=== PATIENT | female | born 1960 | race Caucasian/White ===

== ENCOUNTER 2018-12-12 15:31 | Emergency (ER) | payer SELFPAY ==
[2018-12-12] MEDS ORDERED: Fluorescein 1 MG Ophth Strip EYELF ONE (16:50)
[2018-12-12] MEDS ORDERED: Ketorolac 0.5% Ophth Soln 5 ML Bottle EYELF ONE (17:36)
[2018-12-12] MEDS ORDERED: Ciprofloxacin 0.3% Ophth Soln 5 ML Bottle EYELF ONE (17:37)
--- NOTE | 2018-12-12 17:43 | EDM.PDOC ---
ED HPI GENERAL MEDICAL PROBLEM - General Chief Complaint: ENT Problem Stated Complaint: LT EYE PAIN Time Seen by Provider: 12/12/18 16:50 Source of Information: Reports: Patient, RN Notes Reviewed History Limitations: Reports: No Limitations - History of Present Illness INITIAL COMMENTS - FREE TEXT/NARRATIVE: Patient is a 58-year-old female who presents to the ED for the evaluation of left eye pain. The patient notes that she has a contact lens wearer. She states that she put her contact lenses in this morning, and developed some burning into her left eye. She notes that she went to orthodoxy with the contacts in, and after orthodoxy, she took her contacts out, she states is the burning was making it too painful. She states she's not been able to keep her eyes open much, and she states she is light sensitive. But she feels as if there is a "film over her eye". She denies any blurred vision or double vision. Patient states that the pain is bad enough, she has a headache and some slight nausea with this. Patient notes that she does have glasses to wear as well. 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 Musculoskeletal History: Reports: None Neurological History: Reports: None Psychiatric History: Reports: Anxiety, Depression Endocrine/Metabolic History: Reports: None Hematologic History: Reports: None Immunologic History: Reports: None Oncologic (Cancer) History: Reports: None Dermatologic History: Reports: None - Infectious Disease History Infectious Disease History: Reports: None - Past Surgical History Head Surgeries/Procedures: Reports: None HEENT Surgical History: Reports: Tonsillectomy Social & Family History - Tobacco Use Smoking Status *Q: Never Smoker - Caffeine Use Caffeine Use: Reports: Coffee, Energy Drinks, Soda, Tea - Recreational Drug Use Recreational Drug Use: No ED ROS ENT - Review of Systems Review Of Systems: See Below Constitutional: Denies: Fever, Chills HEENT: Reports: Contact Lenses, Eye Pain. Denies: Eye Discharge Respiratory: Reports: No Symptoms Cardiovascular: Reports: No Symptoms Endocrine: Reports: No Symptoms GI/Abdominal: Reports: Nausea Musculoskeletal: Reports: No Symptoms Skin: Reports: No Symptoms Neurological: Reports: Headache Psychiatric: Reports: No Symptoms Hematologic/Lymphatic: Reports: No Symptoms ED EXAM, ENT - Physical Exam Exam: See Below Exam Limited By: No Limitations General Appearance: Alert, WD/WN, No Apparent Distress Eye Exam: Left Eye: Corneal Abrasion (noted to inner upper aspect of Left eye), Bilateral Eye: Conjunctival Injection, EOMI, PERRL Ears: Normal External Exam Nose: Normal Inspection Mouth/Throat: Normal Inspection Head: Atraumatic, Normocephalic Neck: Normal Inspection Respiratory/Chest: No Respiratory Distress, Lungs Clear, Normal Breath Sounds, No Accessory Muscle Use, Chest Non-Tender Cardiovascular: Normal Peripheral Pulses, Regular Rate, Rhythm, No Murmur GI/Abdominal: Normal Bowel Sounds, Soft, Non-Tender, No Distention, No Mass Extremities: Normal Inspection, Normal Capillary Refill Neurological: Alert, Oriented, Normal Cognition, No Motor/Sensory Deficits Psychiatric: Normal Affect, Normal Mood Skin: Warm, Dry, Intact, Normal Color, No Rash Course - Vital Signs Last Recorded V/S: Last Vital Signs Temp 97.6 F 12/12/18 15:40 Pulse 75 12/12/18 15:40 Resp 16 12/12/18 15:40 BP 126/108 H 12/12/18 15:40 Pulse Ox 100 12/12/18 15:40 - Orders/Labs/Meds Orders: Active Orders 24 hr Category Date Time Status Ciprofloxacin [Ciloxan 0.3% Ophth Soln] Med 12/12/18 17:37 Once See Dose Instructions EYELF Q4H ONE Ketorolac [Acular 0.5% Ophth Soln] Med 12/12/18 17:36 Once See Dose Instructions EYELF QID ONE Meds: Medications Discontinued Medications Generic Name Dose Route Start Last Admin Trade Name Freq PRN Reason Stop Dose Admin Fluorescein Sodium 1 mg 12/12/18 16:50 12/12/18 16:54 Ful-Albina EYELF 12/12/18 16:51 1 mg ONETIME ONE Administration - Re-Assessments/Exams Free Text/Narrative Re-Assessment/Exam: 12/12/18 17:42 Patient presents to the ED for the evaluation for Left eye pain. It does look as if the patient has a corneal abrasion on the left inner upper eyeball. This was examined with Alysia and, and appears to be the only area that is affected. Due to the patient being a contact lens wearer, she'll be given ciprofloxacin drops, and ketorolac drops, for further management, and she will need to follow up with an credit risk analyst in 24-48 hours. Departure - Departure Time of Disposition: 17:43 Disposition: Home, Self-Care 01 Condition: Fair Clinical Impression: Corneal abrasion of left eye due to contact lens - Discharge Information *PRESCRIPTION DRUG MONITORING PROGRAM REVIEWED*: No *COPY OF PRESCRIPTION DRUG MONITORING REPORT IN PATIENT TISHA: No Referrals: PCP,Not In Area [Primary Care Provider] - Additional Instructions: You were evaluated in the ER today regarding your left eye pain. Your eye was evaluated in the ER, and there does appear to be an abrasion on your left eyes, he will need to use the ciprofloxacin drops, one to 2 drops in the left eye every 2-4 hours for the next couple days. You were given a prescription for ketorolac drops, a pain relieving eyedrop, please use 1-2 drops in the left eye 4 times daily as needed. As you are a contact lens wearer, it is recommended that you have an credit risk analyst follow-up within 24-48 hours for a more thorough examination. Please do so as soon as you're able. Please return to the ED at any time if your symptoms should change or worsen. - My Orders Last 24 Hours: My Active Orders 12/12/18 17:36 Ketorolac [Acular 0.5% Ophth Soln] See Dose Instructions EYELF QID ONE 12/12/18 17:37 Ciprofloxacin [Ciloxan 0.3% Ophth Soln] See Dose Instructions EYELF Q4H ONE - Assessment/Plan Last 24 Hours: My Active Orders 12/12/18 17:36 Ketorolac [Acular 0.5% Ophth Soln] See Dose Instructions EYELF QID ONE 12/12/18 17:37 Ciprofloxacin [Ciloxan 0.3% Ophth Soln] See Dose Instructions EYELF Q4H ONE
== END 2018-12-12 18:13 | disposition home or self-care (01) ==
LOC: JD.ED 15:31
DX: H18.822 Corneal disorder due to contact lens, left eye (principal)
CPT/HCPCS: 99283; A9270